=== PATIENT | female | born 1995 | race Caucasian/White ===

== ENCOUNTER 2017-07-22 12:42 | Emergency (ER) | payer BC ==
[2017-07-22 12:47] VITALS: BP 111/80
[2017-07-22] MEDS ORDERED: hydrOXYzine PAMOATE 25 MG CAPSULE PO ONE (13:20)
[2017-07-22] MEDS ORDERED: hydrOXYzine PAMOATE 25 MG CAPSULE ONE (13:29)
--- NOTE | 2017-07-22 13:36 | ERNOTE ---
Psychological HPI - Date Date of Service: 07/22/17 - General Chief Complaint: Anxiety Source: Reports: patient, EMS, RN notes reviewed Exam Limitations: Reports: no limitations - Immun/Allergies/Home Medications Allergies/Adverse Reactions: Allergies amoxicillin Allergy (Intermediate, Verified 07/22/17 12:49) Hives Home Medications: HOME MEDICATIONS Hydroxyzine Pamoate 50 mg PO QID PRN 07/22/17 [Last Taken Unknown] - History of Present Illness Narrative: 22 y/o female brought to the ED by EMS after experiencing a sudden panic attack while driving. She had just seen her PCP for a refill of hydroxyzine that she takes prn and was driving to the pharmacy. She stopped in the driveway of a [place] the [place] and had the homeowner call EMS. Her symptoms have currently almost subsided. She reports only having one other episode similar to this in the past. Time Seen by Provider: 07/22/17 13:06 Situational Problems: Reports: other - Denies Review of Systems - Review of Systems Constitutional: Absent: recent illness, fever, malaise EYE: Present: no symptoms reported ENT: Present: no symptoms reported Respiratory: Absent: cough, wheezing Cardiology: Absent: chest pain, palpitations, syncope Gastrointestinal/Abdominal: Absent: nausea, vomiting, abdominal pain Genitourinary: Present: no symptoms reported Musculoskeletal: Present: no symptoms reported Skin: Present: no symptoms reported Neurological: Present: dizziness/light-headedness, tingling Endocrine: Present: no symptoms reported Hematologic/Lymphatic: Present: no symptoms reported Psych: Present: no symptoms reported - Patient's Past Medical History Patient History - Medical: Anxiety, Other Patient History - Cardiac/Respiratory: No pertinent hx Patient History - Cancer: No Hx of Cancer Patient History - Surgical Procedures: No surgical history Patient History - Other: None LMP (females 10-50): now - Social History Living Situations: home Abuse History: No History of abuse Psych History: Hx of Anxiety Smoking Status: Current every day smoker Have you smoked in the past 12 months: Yes Alcohol Use: rarely Drug Use: none - Immunizations Immunizations Up to Date: Yes Hx Pneumococcal Vaccination: No History of Influenza Vaccine: No Psychological Exam - Exam General Appearance: Present: alert, no apparent distress, thin Head Exam: Present: normal inspection Neurological: Present: alert, normal mood/affect, calm, oriented x 3 Thoughts/Hallucinations: Present: normal thought pattern Behavior/Eye Contact/Speech: Present: cooperative, good eye contact, normal speech Respiratory: Present: no respiratory distress, normal breath sounds, no accessory muscle use, lungs clear Cardiovascular/Chest: Present: regular rate, rhythm, no murmur Skin Exam: Present: normal color, warm/dry, no cyanosis ED Progress - Vital Signs Patient's Vital Signs:: I have reviewed the patient's vital signs. Vital Signs: Vital Signs 07/22/17 12:44 Temperature 36.8 C Pulse Rate 76 Respiratory 16 Rate Blood Pressure 111/80 O2 Sat by Pulse 100 Oximetry - Progress/Reassessment Chief Complaint: Anxiety Progress:: Improved Departure Clinical Impression: Panic attack - Departure Disposition: Home Follow Up Needed Condition: Good Instructions: Panic Attacks, [id number], Form - Excuse from Work, School, or Physical Activity Additional Instructions: Take hydroxyzine as directed for symptoms Contact your PCP if attacks become more frequent or severe
== END 2017-07-22 13:34 | disposition home or self-care (01) ==
LOC: ER 12:42
DX: F41.0 Panic disorder [episodic paroxysmal anxiety] (principal); F41.9 Anxiety disorder, unspecified; F17.200 Nicotine dependence, unspecified, uncomplicated